=== PATIENT | female | born 1995 | race Caucasian/White ===

== ENCOUNTER 2018-06-03 11:48 | Inpatient (IN) | payer OTHER ==
[2018-06-03] MEDS: morphine 2 MG INJ IV (15:14)
[2018-06-03] MEDS: ONDANSETRON 4 MG INJ IV (15:14)
[2018-06-03] MEDS: NS + KCL 20 MEQ 1,000 ML IV (15:14)
[2018-06-03] MEDS ORDERED: NACL 0.9% 3 ML SYG IV (15:30)
[2018-06-03] MEDS ORDERED: MAGNESIUM HYDROXIDE 30ML CUP PO (15:30)
[2018-06-03] MEDS ORDERED: ZOLPIDEM 5 MG TAB PO (15:30)
[2018-06-03] MEDS ORDERED: ACETAMINOPHEN 325 MG TAB PO (15:30)
[2018-06-03] MEDS ORDERED: DOCUSATE SODIUM 100 MG CAP PO (15:30)
[2018-06-03] MEDS: PIPER-TAZO 3.375 GM IV (PMX) 100 ML IVPB ×2 (16:06→20:02)
[2018-06-03] MEDS: HYDROCODONE/APAP (5/325) TAB PO (16:10)
[2018-06-03] MEDS: HYDROmorphONE 1 MG/ML SYG IV ×2 (16:50→22:20)
[2018-06-03] MEDS ORDERED: PIPER-TAZO 3.375 GM IV (PMX) 100 ML IVPB (18:00)
[2018-06-04] MEDS: PIPER-TAZO 3.375 GM IV (PMX) 100 ML IVPB ×4 (01:10→18:03)
[2018-06-04] MEDS: NS + KCL 20 MEQ 1,000 ML IV ×3 (04:46→19:03)
[2018-06-04] MEDS: HYDROmorphONE 1 MG/ML SYG IV ×2 (04:47→10:34)
[2018-06-04 05:17] LABS: ADD MAN DIFF? NO
[2018-06-04 05:18] LABS: BASOPHILS % 0.3 % (0.0-2.0); EOSINOPHILS # 0.1 10^3/ul (0.0-0.5); EOSINOPHILS % 0.6 % (0.0-7.0); HEMATOCRIT 37.3 % (37.0-47.0); HEMOGLOBIN 12.5 g/dl (12.0-16.0); LYMPHOCYTES # 1.2 10^3/ul (0.8-2.9); LYMPHOCYTES % 10.8 % (15.0-51.0); MEAN CORPUSCULAR HEMOGLOBIN 30.4 pg (29.0-33.0); MEAN CORPUSCULAR HGB CONC 33.5 g/dl (32.0-37.0); MEAN CORPUSCULAR VOLUME 90.8 fl (82.0-101.0); MEAN PLATELET VOLUME 10.4 fl (7.4-10.4); MONOCYTE # 0.9 10^3/ul (0.3-0.9); MONOCYTES % 7.6 % (0.0-11.0); NEUTROPHIL # 9.2 10^3/ul (1.6-7.5); NEUTROPHILS % 80.3 % (39.0-77.0); PLATELET COUNT 268 10^3/UL (140-415); RED BLOOD COUNT 4.11 10^6/ul (4.20-5.40); RED CELL DISTRIBUTION WIDTH 12.3 % (11.5-14.5)
[2018-06-04 05:18] LABS: WHITE BLOOD COUNT 11.4 10^3/ul (4.8-10.8)
[2018-06-04 05:47] LABS: ALANINE AMINOTRANSFERASE 18 IU/L (13-69); ALBUMIN 3.9 g/dl (3.3-4.9); ALKALINE PHOSPHATASE 50 IU/L (42-121); ANION GAP 10 (5-13); ASPARTATE AMINO TRANSFERASE 14 IU/L (15-46); BILIRUBIN,INDIRECT 1.2 mg/dl (0-1.1); BILIRUBIN,TOTAL 1.2 mg/dl (0.2-1.3); BLOOD UREA NITROGEN 8 mg/dl (7-20); CALCIUM 8.5 mg/dl (8.4-10.2); CARBON DIOXIDE 26 mmol/L (21-31); CHLORIDE 103 mmol/L (97-110); CREATININE 0.58 mg/dl (0.44-1.00); Estimated GFR > 60 mL/min (>60); GLUCOSE 113 mg/dl (70-220); MAGNESIUM 1.8 mg/dl (1.7-2.5); PHOSPHORUS 3.5 mg/dl (2.5-4.9); POTASSIUM 3.7 mmol/L (3.5-5.1); SODIUM 139 mmol/L (135-144); TOTAL PROTEIN 6.5 g/dl (6.1-8.1)
[2018-06-04] MEDS ORDERED: DESFLURANE 15 MIN (07:00)
[2018-06-04] MEDS ORDERED: CEFAZOLIN 1 GM INJ (07:00)
[2018-06-04 09:18] LABS: HEMOGLOBIN A1C 4.8 % (0-5.9)
[2018-06-04] MEDS ORDERED: LIDOCAINE 1% (STERILE-PAK) 30 ML INJ (14:12)
[2018-06-04] MEDS ORDERED: HYDROmorphONE 1 MG/5 ML IV SYRINGE IV ×3 (14:30)
[2018-06-04] MEDS ORDERED: DIPHENHYDRAMINE 50 MG INJ IV (14:30)
[2018-06-04] MEDS ORDERED: PROPOFOL 20 ML (16:10)
[2018-06-04] MEDS ORDERED: ONDANSETRON 4 MG INJ (16:10)
[2018-06-04] MEDS ORDERED: MIDAZOLAM 1 MG/ML 2 ML INJ (16:10)
[2018-06-04] MEDS ORDERED: ROCURONIUM 50 MG INJ (16:10)
[2018-06-04] MEDS ORDERED: METOCLOPRAMIDE 10 MG INJ (16:10)
[2018-06-04] MEDS ORDERED: ROPIVACAINE 0.5 % 30 ML VIAL (16:10)
[2018-06-04] MEDS ORDERED: PHENYLephrine (100 MCG/ML) 5ML SYG (16:23)
[2018-06-04] MEDS ORDERED: morphine SULFATE/PF (2 MG/2 ML) SYG IV (17:00)
[2018-06-04] MEDS ORDERED: HYDROmorphONE 2 MG/ML SYG (17:01)
[2018-06-04] MEDS: BUPIVACAINE 0.25%/EPI (MDV) 50 ML VIAL INJ (17:03)
[2018-06-04] MEDS ORDERED: KETOROLAC 30 MG INJ (17:03)
[2018-06-04] MEDS ORDERED: NEOSTIGMINE 3 MG/3 ML SYRINGE (17:03)
[2018-06-04] MEDS: MEPERIDINE 25 MG INJ IV (17:50)
[2018-06-04] MEDS: ONDANSETRON 4 MG INJ IV (17:53)
[2018-06-04] MEDS ORDERED: ONDANSETRON 4 MG INJ IV (18:00)
[2018-06-04] MEDS ORDERED: HYDROCODONE/APAP (5/325) TAB PO (18:00)
[2018-06-04] MEDS: HYDROmorphONE 2 MG TAB PO (21:57)
[2018-06-05] MEDS: PIPER-TAZO 3.375 GM IV (PMX) 100 ML IVPB ×4 (00:27→19:36)
[2018-06-05] MEDS: HYDROmorphONE 2 MG TAB PO ×2 (02:31→10:04)
[2018-06-05 05:12] LABS: ADD MAN DIFF? NO
[2018-06-05 05:22] LABS: BASOPHILS % 0.4 % (0.0-2.0); EOSINOPHILS # 0.2 10^3/ul (0.0-0.5); EOSINOPHILS % 1.8 % (0.0-7.0); HEMATOCRIT 31.3 % (37.0-47.0); HEMOGLOBIN 10.3 g/dl (12.0-16.0); LYMPHOCYTES # 1.3 10^3/ul (0.8-2.9); MEAN CORPUSCULAR HEMOGLOBIN 30.2 pg (29.0-33.0); MEAN CORPUSCULAR HGB CONC 32.9 g/dl (32.0-37.0); MEAN CORPUSCULAR VOLUME 91.8 fl (82.0-101.0); MEAN PLATELET VOLUME 10.3 fl (7.4-10.4); MONOCYTE # 0.8 10^3/ul (0.3-0.9); MONOCYTES % 8.8 % (0.0-11.0); NEUTROPHIL # 6.3 10^3/ul (1.6-7.5); NEUTROPHILS % 73.5 % (39.0-77.0); PLATELET COUNT 210 10^3/UL (140-415); RED BLOOD COUNT 3.41 10^6/ul (4.20-5.40); RED CELL DISTRIBUTION WIDTH 12.4 % (11.5-14.5)
[2018-06-05 05:22] LABS: WHITE BLOOD COUNT 8.5 10^3/ul (4.8-10.8)
[2018-06-05] MEDS: HYDROmorphONE 1 MG/ML SYG IV ×4 (05:23→20:57)
[2018-06-05 05:30] LABS: ANION GAP 7 (5-13); BLOOD UREA NITROGEN 6 mg/dl (7-20); CARBON DIOXIDE 26 mmol/L (21-31); CHLORIDE 105 mmol/L (97-110); CREATININE 0.48 mg/dl (0.44-1.00); Estimated GFR > 60 mL/min (>60); GLUCOSE 89 mg/dl (70-220); POTASSIUM 4.1 mmol/L (3.5-5.1); SODIUM 138 mmol/L (135-144)
[2018-06-05] MEDS: NS + KCL 20 MEQ 1,000 ML IV ×2 (06:37→16:49)
[2018-06-05] MEDS: SOD CHLORIDE 0.9% 1,000 ML IV (12:11)
[2018-06-05 12:50] LABS: LACTIC ACID 0.9 mmol/L (0.5-2.0)
[2018-06-06] MEDS: PIPER-TAZO 3.375 GM IV (PMX) 100 ML IVPB ×3 (00:19→12:40)
[2018-06-06] MEDS: HYDROmorphONE 1 MG/ML SYG IV ×3 (00:49→09:09)
[2018-06-06] MEDS: NS + KCL 20 MEQ 1,000 ML IV (04:17)
[2018-06-06 05:25] LABS: ADD MAN DIFF? NO
[2018-06-06 05:33] LABS: WHITE BLOOD COUNT 7.1 10^3/ul (4.8-10.8)
[2018-06-06 05:33] LABS: BASOPHILS % 0.4 % (0.0-2.0); EOSINOPHILS # 0.1 10^3/ul (0.0-0.5); EOSINOPHILS % 1.1 % (0.0-7.0); HEMATOCRIT 31.5 % (37.0-47.0); HEMOGLOBIN 10.4 g/dl (12.0-16.0); LYMPHOCYTES # 1.5 10^3/ul (0.8-2.9); LYMPHOCYTES % 20.9 % (15.0-51.0); MEAN CORPUSCULAR HEMOGLOBIN 30.4 pg (29.0-33.0); MEAN CORPUSCULAR VOLUME 92.1 fl (82.0-101.0); MEAN PLATELET VOLUME 10.3 fl (7.4-10.4); MONOCYTE # 0.5 10^3/ul (0.3-0.9); MONOCYTES % 7.1 % (0.0-11.0); NEUTROPHILS % 70.2 % (39.0-77.0); PLATELET COUNT 243 10^3/UL (140-415); RED BLOOD COUNT 3.42 10^6/ul (4.20-5.40); RED CELL DISTRIBUTION WIDTH 12.7 % (11.5-14.5)
[2018-06-06 06:00] LABS: ALANINE AMINOTRANSFERASE 39 IU/L (13-69); ALBUMIN 3.1 g/dl (3.3-4.9); ALBUMIN/GLOBULIN RATIO 1.06; ALKALINE PHOSPHATASE 64 IU/L (42-121); ANION GAP 8 (5-13); ASPARTATE AMINO TRANSFERASE 24 IU/L (15-46); BILIRUBIN,INDIRECT 0.4 mg/dl (0-1.1); BILIRUBIN,TOTAL 0.4 mg/dl (0.2-1.3); BLOOD UREA NITROGEN 3 mg/dl (7-20); CALCIUM 7.9 mg/dl (8.4-10.2); CARBON DIOXIDE 27 mmol/L (21-31); CHLORIDE 105 mmol/L (97-110); CREATININE 0.48 mg/dl (0.44-1.00); Estimated GFR > 60 mL/min (>60); GLUCOSE 104 mg/dl (70-220); POTASSIUM 4.1 mmol/L (3.5-5.1); SODIUM 140 mmol/L (135-144)
[2018-06-06] MEDS: HYDROmorphONE 2 MG TAB PO (12:38)
[2018-06-06] MEDS: HYDROCODONE/APAP (5/325) TAB PO (15:55)
== END 2018-06-06 18:50 | disposition home or self-care (01) | DRG 854 ==
LOC: MS1 11:48
PROC: 0FT44ZZ Resection of Gallbladder, Percutaneous Endoscopic Approach (ICD-10-PCS; principal; 2018-06-04 14:00)
PROC: 0FB04ZX Excision of Liver, Percutaneous Endoscopic Approach, Diagnostic (ICD-10-PCS; 2018-06-04 14:00)
DX: A41.9 Sepsis, unspecified organism (principal); K80.00 Calculus of gallbladder with acute cholecystitis without obstruction; Z68.28 Body mass index [BMI] 28.0-28.9, adult
CPT/HCPCS: 76705; 78226; 80048; 80053; 83036; 83605; 83735; 84100; 85025; 87040; 88304; 88307; 88313